=== PATIENT | female | born 1995 | race Caucasian/White ===

== ENCOUNTER → 2018-06-06 | Outpatient (CLI) | payer BC ==
--- NOTE | 2018-06-06 14:00 | US ---
EXAM DESCRIPTION: Soft Tissue,Head/Neck: ULTRASOUND. CLINICAL HISTORY: 23 years Female NECK MASS COMPARISON: None Available. TECHNIQUE: Transcutaneous scanning: Villagran-scale and Doppler modes. FINDINGS: Scanning of the left side of the neck were masses palpable. 0.8 x 0.8 x 1.2 cm hypoechoic versus anechoic mass with mostly circumscribed and partially lobulated margins. No wall thickening or wall vascularity. Wider than tall orientation with predominantly posterior acoustic enhancement. Located with in the subcutaneous adipose tissue. 5 x 3 x 2 mm echogenic object on the anterior surface of this mass abutting the skin. Nonvascular. No dominant solid mass or distinct simple cyst. No parenchymal edema or large calcifications. No abnormal vascularity. IMPRESSION: Subcutaneous cyst probably related to the dermal structure with anterior dermal or epidermal solid component versus lymph node. No abnormal vascularity. No adjacent abscess or parenchymal edema. Consider percutaneous aspiration. Electronically signed by: Jacob Lal MD 06/06/2018 1:57 PM CDT
== END ==
LOC: US 10:34
PROVIDERS: ATTEND Physician Assistant
DX: R22.1 Localized swelling, mass and lump, neck (principal)